=== PATIENT | female | born 1950 | race Caucasian/White ===

== ENCOUNTER → 2017-02-20 | Outpatient (CLI) | payer OTHER ==
[~2017-02-20] MED LIST: ASPI81TA28 PO; CHOL1000 PO; CHOL100010 PO; CZR50 PO; GLC/500 PO; LEVO150T9 PO; LEVO50TA6 PO; OXYC-57 PO; PRLSR20 PO; SERT50TA PO
[2017-02-20 12:57] LABS: ESTIMATED AVERAGE GLUCOSE 160 mg/dl; HA1C FLAG Normal (Normal)
[2017-02-20 13:10] LABS: ALT/SGPT 29 U/L (12-78); AST/SGOT 14 U/L (15-37); BLOOD UREA NITROGEN 18 mg/dl (7-18); BUN/CREATININE RATIO 20.9 (10-20); CALCIUM 9.1 mg/dl (8.5-10.1); CARBON DIOXIDE 30 mmol/L (21-32); CHLORIDE 104 mmol/L (98-107); CREATININE 0.85 mg/dl (0.60-1.20); GLUCOSE 134 mg/dl (70-99); POTASSIUM 4.3 mmol/L (3.5-5.1); SODIUM 140 mmol/L (136-145)
[2017-02-20 13:21] LABS: ALB/GLOB RATIO 1.2 (0.9-2); ALKALINE PHOSPHATASE 80 U/L (45-117); CHOLESTEROL 197 mg/dl (0-200); CHOLESTEROL/HDL RATIO 4.6; HDL CHOLESTEROL 43 mg/dl; LDL CHOLESTEROL CALCULATED 119 mg/dl; TRIGLYCERIDES 177 mg/dl (0-150); VERY LOW DENSITY LIPOPROT CALC 35 mg/dl
== END | disposition home or self-care (01) ==
LOC: C.LABBFT 08:15
PROVIDERS: ATTEND Internal Medicine
DX: Z00.00 Encounter for general adult medical examination without abnormal findings (principal); E11.9 Type 2 diabetes mellitus without complications; E03.9 Hypothyroidism, unspecified; R03.0 Elevated blood-pressure reading, without diagnosis of hypertension

== ENCOUNTER → 2017-03-24 | Outpatient (CLI) | payer OTHER ==
--- NOTE | 2017-03-25 07:57 | MAMMOGRAPHY REPORT ---
UNILATERAL RIGHT DIGITAL DIAGNOSTIC MAMMOGRAM TOMOSYNTHESIS WITH CAD AND TARGETED RIGHT ULTRASOUND: 03/24/2017 CLINICAL HISTORY: 66-year-old woman presents for follow-up of a mass in the 5:00 to 6:00 posterior r ight breast, thought to correlate with a cyst cluster on ultrasound. TECHNIQUE: Right breast tomosynthesis in addition to standard 2D mammography was performed. Current study was also evaluated with a Computer Aided Detection (CAD) system. COMPARISON: Comparison is made to exams dated: 09/24/2016 ultrasound, 09/24/2016 mammogram, 09/06/20 16 mammogram, 09/02/2014 mammogram, 09/01/2013 mammogram, and 08/31/2012 mammogram - [facility]. BREAST COMPOSITION: There are scattered areas of fibroglandular density in the right breast. FINDINGS: There is a stable 7.6 mm circumscribed round mass in the upper outer anterior right breas t, that is unchanged in size dating back to at least 08/18/2007, therefore likely benign. There are scattered benign-appearing calcifications in the right breast. There is a focal asymmetry measurin g 17 x 10 x 4 mm in the 6:00 posterior right breast, that is minimally increased in size compared to the 09/06/2016 screening mammogram at which time it measured 15 x 7 x 4 mm. No other new mass, arc hitectural distortion or suspicious microcalcifications are seen in the right breast. Targeted ultrasound was performed in the 6:00 right breast. In the 6:00 axis, 3 cm from the nipple, a predominantly anechoic multi loculated cystic appearing mass probably representing a cyst cluster is again identified. It measures approximately 11.5 x 5.2 x 8.0 mm. This is slightly increased co mpared to the prior ultrasound at which time it measured 6.5 x 10.0 x 5.1 mm. Given the interval ch anabell, although it most likely represents a benign cyst cluster, definitive characterization with ult rasound guided cyst aspiration is recommended. IMPRESSION: ACR BI-RADS CATEGORY 4A: LOW SUSPICION FOR MALIGNANCY, TARGETED ULTRASOUND ACR BI-RADS CATEGORY 4A: LOW SUSPICION FOR MALIGNANCY 1. Ultrasound guided cyst aspiration is recommended for a predominantly cystic appearing multilocul ated 12 mass in the 6:00 right breast, thought to correlate with an increasingly prominent focal lary mographic asymmetry. These results and recommendations were discussed with the patient at the time of the exam. She tent atively scheduled the cyst aspiration prior to leaving our department. Approximately 10% of breast cancers are not detected with mammography. A negative mammographic repor t should not delay biopsy if a clinically suggestive mass is present. Suri Jones M.D. ay/:03/24/2017 13:13:04 Lower School Music Teacher: Sara KAMARA(Frantz)(Sriram), [facility] letter sent: Abnormal 4/5 BI-RADS Code: ACR BI-RADS Category 4A: Low Suspicion For Malignancy Ultrasound BI-RADS: ACR BI-RADS Category 4A: Low Suspicion For Malignancy
== END | disposition home or self-care (01) ==
LOC: C.MAMM 09:46
PROVIDERS: ATTEND Internal Medicine
DX: Z09 Encounter for follow-up examination after completed treatment for conditions other than malignant neoplasm (principal); R92.8 Other abnormal and inconclusive findings on diagnostic imaging of breast

== ENCOUNTER → 2017-04-01 | Outpatient (CLI) | payer OTHER ==
--- NOTE | 2017-04-01 14:57 | MAMMOGRAPHY REPORT ---
UNILATERAL RIGHT DIGITAL DIAGNOSTIC MAMMOGRAM TOMOSYNTHESIS: 04/01/2017 CLINICAL HISTORY: Status post ultrasound-guided cyst aspiration in the 6:00 right breast. Please refer to the report from right breast ultrasound guided cyst aspiration performed at the same time for full detail. IMPRESSION: Please refer to the report from right breast ultrasound guided cyst aspiration performed at the same time for full detail. Approximately 10% of breast cancers are not detected with mammography. A negative mammographic repor t should not delay biopsy if a clinically suggestive mass is present. Suri Jones M.D. ay/:04/01/2017 12:07:58 Meteorological Engineer: Desiree KAMARA(R)(M), [facility] BI-RADS Code: n/a
--- NOTE | 2017-04-01 14:57 | MAMMOGRAPHY REPORT ---
ASPIRATION RIGHT BREAST: 04/01/2017 CLINICAL HISTORY: Multiloculated cystic appearing mass in the 6:00 right breast thought to correlate with a focal mammographic asymmetry. Patient presents for ultrasound guided cyst aspiration. COMPARISON: Comparison is made to exams dated: 03/24/2017 ultrasound, 03/24/2017 mammogram, 6 ultrasound, 09/24/2016 mammogram, 09/06/2016 mammogram, and 09/04/2015 mammogram - [facility]. PATIENT CONSENT: Both the procedures of ultrasound guided cyst aspiration an ultrasound guided core needle biopsy were explained to the patient. After explaining the risks, benefits and alternatives of the procedures to the patient, informed consent was obtained verbally and in writing. Specific ri sks include: bleeding, infection, puncture of adjacent structure, nontarget biopsy, sampling error a nd medication reaction. PROCEDURE DESCRIPTION: A time out was performed and the right breast was agreed as the site for atte mpted cyst aspiration versus core biopsy. The multiloculated predominantly anechoic cystic appearin g mass in the 6:00 right breast was identified. 1% buffered lidocaine was administered subcutaneousl y and intraparenchymally as local anesthesia. A 22 gauge needle was advanced to the site of the cyst ic mass. Aspiration was preformed and all of the small cystic locules resolved, confirming benign s imple cysts. The fluid was pinkish/straw-colored and clear, therefore discarded. No solid componen t was present after aspiration to warrant core needle biopsy. Real-time sonography through the area after the needle was withdrawn demonstrated no residual cystic mass. Postprocedure right CC and MLO 2-D digital and tomosynthesis images were obtained. There is a persi stent 15 mm focal asymmetry in the 6:00 posterior right breast, at the site of the cyst aspiration. On the corresponding tomosynthesis images, there are no longer borders and the asymmetry is no long er masslike. The asymmetry most likely represents residual lidocaine or partial reaccumulation. Ne vertheless, a short interval follow-up diagnostic right mammogram and possible repeat ultrasound is recommended to ensure stability in 6 months. IMPRESSION: ASPIRATION Status post aspiration to resolution of a multiloculated cyst in the 6:00 right breast. The mammogr aphic asymmetry persists and could represent residual lidocaine and/or partial reaccumulation. Ther efore, a follow-up diagnostic right mammogram and possible repeat ultrasound is recommended to ensur e stability in 6 months. Annual left mammography will be due at that time. These results and recommendations were discussed with the patient at the time of the exam. Suri Jones M.D. ay/:04/01/2017 12:23:33 Industrial Commercial Groundskeeper: Desiree CHACON)(Sriram), [facility]
== END | disposition home or self-care (01) ==
LOC: C.MAMM 10:37
PROVIDERS: ATTEND Internal Medicine
DX: N64.89 Other specified disorders of breast (principal)

== ENCOUNTER → 2017-05-28 | Outpatient (CLI) | payer OTHER ==
[~2017-05-28] MED LIST changes: -ASPI81TA28 PO; -CHOL1000 PO; -CZR50 PO; -LEVO150T9 PO; -OXYC-57 PO
[2017-05-28 12:39] LABS: ESTIMATED AVERAGE GLUCOSE 160 mg/dl; HA1C FLAG Normal (Normal)
== END | disposition home or self-care (01) ==
LOC: C.LABBFT 09:15
PROVIDERS: ATTEND Internal Medicine
DX: Z00.00 Encounter for general adult medical examination without abnormal findings (principal); E11.9 Type 2 diabetes mellitus without complications; E03.9 Hypothyroidism, unspecified

== ENCOUNTER → 2017-09-16 | Outpatient (CLI) | payer OTHER ==
--- NOTE | 2017-09-16 10:53 | Discharge Instructions ---
Discharge Instructions Procedure Procedure Date: Sep 16, 2017. Reason for visit: Right breast focal asymmetry Discharge Discharge Date: Sep 16, 2017. Discharge Diagnosis: post right breast ultrasound guided core biopsy Instructions Activity Recommendations: Additional Limitations (see below) Return to School/Work: no limitations Recommended Home Diet: No Limitations Provider Instructions: ACTIVITY RECOMMENDATIONS: * No lifting, pushing, pulling or exercising the affected side for three days. RETURN TO SCHOOL/WORK: * You may return to work/school after the procedure, but do not perform any strenuous activities for 24 to 48 hours. MEDICATIONS: * Tylenol (two 325 mg) every four to six hours if needed for mild pain (if not allergic to Tylenol). DIET: * Resume previous diet. SPECIAL CARE INSTRUCTIONS: * Keep biopsy site dry for 24 hours. May shower after 24 hours, but do not soak (bathe) incision. * May remove Tegaderm (plastic patch) tomorrow AFTER showering. * Leave the steri-strips on for one week. Allow the steri-strips to fall off by themselves. If not off after one week, you may remove them. You may place a Bandaid crosswise over the strips, if desired. * Apply ice 10 minutes on and 10 minutes off as needed. * Wear a bra at bedtime to sleep more comfortably for 2-3 days. * Your referring physician should have the results after approximately 5 to 7 business days. * Call for unusual bleeding, fever, drainage, etc or if you have any questions call [phone] during normal business hours or after hours call Dr Jones, . FOLLOW UP VISIT: Follow-up with Referring Physician as scheduled. Allergies Coded Allergies: No Known Allergies (Unverified , NONE, 10/21/16) Justina Irizarry Recommendations: Call your doctor if: * Temperature above 101 degrees * Pain not relieved by pain medicine ordered * There is increased drainage or redness from any incision * You have any unanswered questions or concerns. Your Doctors Instructions noted above were prepared by provider Suri Jones. Patient Signature Section: Patient Instructions Signature Page Savannah Quevedo Patient (or Guardian) Signature/Date: I have read and understand the instructions given to me by my caregivers. Caregiver/RN/Doctor Signature/Date: The above-named patient and/or guardian has received patient instructions on this date. + Original Patient Signature Page (only) stays with chart. Please make copy for patient.
--- NOTE | 2017-09-16 15:11 | MAMMOGRAPHY REPORT ---
UNILATERAL RIGHT DIGITAL DIAGNOSTIC MAMMOGRAM TOMOSYNTHESIS: 09/16/2017 CLINICAL HISTORY: Status post ultrasound-guided core biopsy of a cystic appearing mass in the 6:00 ri ght breast thought to correlate with an increasingly prominent focal mammographic asymmetry. Please refer to the report from right breast ultrasound guided core biopsy performed at the same time for full detail. IMPRESSION: POST PROCEDURE IMAGING FOR MARKER PLACEMENT Please refer to the report from right breast ultrasound guided core biopsy performed at the same time for full detail. Approximately 10% of breast cancers are not detected with mammography. A negative mammographic report should not delay biopsy if a clinically suggestive mass is present. Suri Jones M.D. ay/:09/16/2017 10:52:09 Lead Enterprise Architect: Betty Uriostegui, [facility] BI-RADS Code: Post Procedure Imaging For Marker Placement
--- NOTE | 2017-09-16 15:11 | MAMMOGRAPHY REPORT ---
ULTRASOUND GUIDED BIOPSY RIGHT BREAST: 09/16/2017 CLINICAL HISTORY: Ultrasound-guided core biopsy of a multiloculated cystic mass in the 6:00 right rafael ast thought to correlate with an increasingly prominent mammographic focal asymmetry. COMPARISON: Comparison is made to exams dated: 09/09/2017 ultrasound, 09/09/2017 mammogram, 04/01/2017 aspiration, 04/01/2017 mammogram, 03/24/2017 ultrasound, and 03/24/2017 mammogram - [facility]. PATIENT CONSENT: The procedure, risks and benefits were discussed with the patient and informed conse nt was obtained both verbally and in writing. Specific risks to this procedure include: bleeding, in fection, puncture of adjacent structure, nontarget biopsy, sampling error, pain, metal allergy and me dication reaction. PROCEDURE DESCRIPTION: A time out was performed and the right breast was agreed as the site of biopsy . The skin was prepped and draped in the usual sterile fashion. The cystic appearing multiloculated m ass in the 6:00 right breast was chosen as the target for biopsy. Subcutaneous and intraparenchymal 1 % buffered lidocaine, with and without epinephrine, was administered as local anesthesia. A skin inci brad was made. Through the incision, 3 samples were taken with a 12 gauge Celero biopsy device. A ri bbon shaped metallic marker was placed at the biopsy site. Hemostasis was achieved after manual compr ession. The patient tolerated the procedure well and there was no immediate complication. The sample s were sent to the pathology department in an appropriately labeled container. Postprocedure right CC, MLO and ML views of the right breast were obtained. There is a new ribbon-sh aped biopsy marker clip in the 6:00 middle to posterior right breast, aligning with the focal asymmet ry seen mammographically. This confirms mammographicsonographic correlation. No significant postbi opsy hematoma identified. IMPRESSION: ULTRASOUND GUIDED BIOPSY Status post ultrasound-guided core biopsy of a multiloculated cystic appearing mass thought to correl ate with a focal asymmetry in the 6:00 right breast. The biopsy marker clip aligns with the mammogra phic asymmetry in question, confirming mammographicsonographic correlation. The patient will receive notification of the biopsy results from her referring physician. Suri Jones M.D. ay/:09/16/2017 11:08:40 Information Security Director: Betty Uriostegui, [facility]
== END | disposition home or self-care (01) ==
LOC: C.MAMM 10:14
PROVIDERS: ATTEND Internal Medicine
DX: D05.11 Intraductal carcinoma in situ of right breast (principal)

== ENCOUNTER → 2017-10-03 | Outpatient (CLI) | payer OTHER ==
[~2017-10-03] MED LIST changes: +ASPI81TA28 PO; +CHOL1000 PO; +CZR50 PO; +LEVO150T9 PO; +OXYC-57 PO
[2017-10-03 10:05] LABS: BASO % 0.9 %; BASO ABS # 0.07 K/uL (0-0.2); COMPLETE YES; EOS % 2.6 %; HEMATOCRIT 41.4 % (37-47); IG% 0.4 %; LYMPH % 26.6 %; LYMPH ABS # 2.11 K/uL (1.2-3.4); MEAN CELL VOLUME 83.6 fL (80-100); MEAN CORPUSCULAR HEMOGLOBIN 27.9 pg (25-34); MEAN CORPUSCULAR HGB CONC 33.3 g/dl (32-36); MEAN PLATELET VOLUME 8.8 fL (7.4-10.4); NEUT % 64.5 %; PLATELET COUNT 293 K/uL (130-400); RED BLOOD COUNT 4.95 M/uL (4.2-5.4); WHITE BLOOD COUNT 7.94 K/uL (4.8-10.8)
[2017-10-03 10:31] LABS: ALT/SGPT 31 U/L (12-78); AST/SGOT 15 U/L (15-37); BLOOD UREA NITROGEN 17 mg/dl (7-18); BUN/CREATININE RATIO 21.1 (10-20); CALCIUM 8.9 mg/dl (8.5-10.1); CARBON DIOXIDE 28 mmol/L (21-32); CHLORIDE 104 mmol/L (98-107); CREATININE 0.81 mg/dl (0.60-1.20); GLUCOSE 135 mg/dl (70-99); POTASSIUM 4.1 mmol/L (3.5-5.1); SODIUM 136 mmol/L (136-145)
[2017-10-03 10:33] LABS: ALB/GLOB RATIO 1.1 (0.9-2); ALKALINE PHOSPHATASE 74 U/L (45-117)
== END | disposition home or self-care (01) ==
LOC: C.LAB 09:21
PROVIDERS: ATTEND Surgery
DX: D05.10 Intraductal carcinoma in situ of unspecified breast (principal)

== ENCOUNTER 2017-10-08 09:14 | Day surgery (SDC) | payer OTHER ==
[2017-10-03 15:34] VITALS: BMI 34.0
[~2017-10-08] VITALS: Ht 167.6 cm; Wt 96.8 kg
[~2017-10-08 09:14] MED LIST changes: +CEFAZOLIN 2000MG IV PUSH 10 ML IV SCH; -CHOL100010 PO; +LACTATED RINGER'S 1000ML 1,000 ML IV SCH; -LEVO50TA6 PO; -OXYC-57 PO; -PRLSR20 PO
[2017-10-08] MEDS ORDERED: ATROPINE SULFATE 0.1 MG/ML 5ML SYR IV PRN (10:00)
[2017-10-08] MEDS ORDERED: ONDANSETRON INJ 2 MG/ML 2 ML VIAL IV PRN ×2 (10:00→13:45)
[2017-10-08] MEDS ORDERED: FENTANYL CITRATE INJ 50 MCG/1 ML 2 ML VIAL IV PRN (10:00)
[2017-10-08] MEDS ORDERED: EpHEDrine SULFATE INJ 50 MG/ML AMP IV PRN (10:00)
--- NOTE | 2017-10-08 10:25 | Discharge Instructions ---
Discharge Instructions Date of Service Oct 08, 2017. Visit Reason for Visit: Right Breast Ductal Carcinoma In Situ Discharge Discharge Diagnosis / Problem: right breast lumpectomy Discharge Goals Goal(s): Decrease discomfort Activity Recommendations Activity Limitations: as noted below Lifting Limitations: no more than 10 pounds Shower/Bathe: no limitations (ok to shower) Anesthesia . Post Anesthesia Instructions: If you have had General Anesthesia or IV Sedation: * Do not drive today. * Resume driving when surgeon permits. * Do not make important decisions or sign legal documents today. * Call surgeon for: 1. Temperature elevations greater than 101 degrees F. 2. Uncontrollable pain. 3. Excessive bleeding. 4. Persistent nausea and vomiting. 5. Medication intolerance (nausea, vomiting or rash). * For nausea and vomiting use only clear liquids such as: tea, soda, bouillon until nausea subsides, then gradually increase diet as tolerated. * If you have any concerns or questions, call your surgeon's office. If physician is unavailable and it is an emergency, call 911 or go to the nearest emergency room. . Instructions / Follow-Up Instructions / Follow-Up Dr. Ryder in 1-2 weeks as planned, call [phone] for any questions Diet Recommendations Recommended Home Diet: no limitations Pending Studies Studies pending at discharge: yes List of pending studies: pathology Medical Emergencies . Who to Call and When: Medical Emergencies: If at any time you feel your situation is an emergency, please call 911 immediately. . Non-Emergent Contact Non-Emergency issues call your: Surgeon Call Non-Emergent contact if: you have a fever, temperature is above 101.5, your pain is not controlled, you have any medication questions . . "Provider Documentation" section prepared by Mario Willard. .
[2017-10-08] MEDS ORDERED: OXYC-57 PO (10:26)
[2017-10-08 11:30] VITALS: BP 179/92; PULSE 87; TEMP 37.2; O2SAT 95; Ht 167.6 cm; Wt 96.8 kg
--- NOTE | 2017-10-08 11:49 | History & Physical Bridge Note ---
H&P Re-Evaluation Bridge Note: I have examined the patient, reviewed the History & Physical and in the interval since the performance of the History & Physical I have noted the following changes of clinical significance: No changes noted
[2017-10-08] MEDS ORDERED: MIDAZOLAM HCL 1 MG/ML 2ML VIAL ONE (12:07)
[2017-10-08] MEDS ORDERED: PROPOFOL IV EMULSION 10 MG/ML 20 ML VIAL IV ONE (12:08)
[2017-10-08] MEDS ORDERED: LIDOCAINE HCL 2% 2 ML VIAL (20MG/ML) ONE (12:08)
[2017-10-08] MEDS ORDERED: ONDANSETRON INJ 2 MG/ML 2 ML VIAL ONE (12:08)
[2017-10-08] MEDS ORDERED: FENTANYL CITRATE INJ 50 MCG/1 ML 2 ML VIAL ONE (12:08)
[2017-10-08] MEDS ORDERED: DEXAMETHASONE SOD INJ 4 MG/ML VIAL ONE (12:09)
[2017-10-08] MEDS ORDERED: LIDOCAINE/EPINEPHRINE 1% 20 ML VIAL ONE (12:12)
[2017-10-08] MEDS ORDERED: BUPIVACAINE 0.5 % 5 MG/1 ML MPF 30ML VIAL ONE (12:13)
[2017-10-08] MEDS ORDERED: SODIUM CHLORIDE 0.9% PF 50 ML VIAL ONE ×2 (13:06→13:17)
[2017-10-08] MEDS ORDERED: LACTATED RINGER'S 1000ML 1,000 ML IV SCH (13:35)
--- NOTE | 2017-10-08 13:35 | [facility] Operative Report ---
Operative Report Operative Date Oct 08, 2017. Pre-Operative Diagnosis Ductal Carcinoma in situ of right Breast Post-Operative Diagnosis ductal carcinoma in situ of right breast Procedure(s) Performed Right breast wire localized lumpectomy Surgeon Britni Project Developer Surgeon(s) Jovan Willard PA-C Estimated Blood Loss 4 mL Findings Lumpectomy performed taking from nipple to chest wall. X-ray specimen revealed excision of wire, clip, and specimen. Additional inferior margin excised. Specimens A. Breast Tissue. Short suture superior; Long suture lateral; Double suture deep B. Inferior Margin. Short suture superior; Long suture lateral; Double suture deep Drains none Anesthesia GETA Complication(s) None Disposition Recovery Room / PACU Indications 66-year-old female with right breast lesion discovered on screening mammography , core needle biopsy revealed DCIS, plan for right breast wire localized lumpectomy. The risks of the procedure were discussed, all questions were answered, and the patient agreed to proceed with surgery as planned. Description of Procedure The patient had a localization wire placed in radiology prior to surgery. The films were reviewed and discussed with the radiologist for incisional planning. The patient was properly identified, consented, and taken to the operating room where she was placed in the supine position. General endotracheal anesthesia was induced. SCDs and a safety belt were placed. Preoperative antibiotics were administered. The patient's right breast was prepped and draped in the standard sterile fashion. Surgical timeout was performed and all parties were in agreement that this was the correct patient and procedure to be performed and we continued as planned. A transverse incision was made on the right breast inferior to the nipple and deepened down through the subcutaneous tissue with electrocautery. Flaps were raised in all directions. The wire was delivered into the incision. The breast mass was circumferentially dissected, excised, and passed off the table as specimen. The specimen was oriented. A mammogram was performed of the specimen in radiology and confirmed excision of the wire, clip, and previously imaged abnormality. The wound was irrigated and hemostasis was confirmed. The skin was closed with interrupted 3-0 Vicryl deep dermal sutures, followed by 4- 0 Monocryl running subcuticular suture. Dermabond was placed over the wound. The breast cavity was injected with 100 mL of injectable saline at the conclusion of the procedure. The patient was extubated in the operating room and taken to the PACU where she recovered without apparent incident. All sponge, instrument and needle counts were correct at the conclusion of the procedure. The patient tolerated the procedure well. I attest to the content of the Intraoperative Record and any orders documented therein. Any exceptions are noted below.
[2017-10-08] MEDS ORDERED: MoRPHine SULFATE 4 MG/ML 1 ML CARP\\VIAL IV PRN (13:45)
[2017-10-08] MEDS ORDERED: OXYCODONE/ACETAMINOPHEN 5-325 TAB PO PRN (13:45)
--- NOTE | 2017-10-08 14:00 | Anesthesiology Progress Note ---
Anesthesia Post Op Note Date & Time Oct 08, 2017 at 14:00 Vital Signs Pain Intensity: 0 Vital Signs Past 12 Hours Date Time Temp Pulse Resp B/P (MAP) Pulse Ox O2 Delivery O2 Flow Rate FiO2 10/08/17 13:55 83 16 173/87 99 Oxymask 10 10/08/17 13:45 83 16 177/92 98 Oxymask 10 10/08/17 13:35 36.8 84 16 188/79 95 Oxymask 10 10/08/17 11:30 37.2 87 20 179/92 (121) 95 Room Air Notes Mental Status: alert / awake / arousable, participated in evaluation Pt Amnestic to Procedure: Yes Nausea / Vomiting: adequately controlled Pain: adequately controlled Airway Patency, RR, SpO2: stable & adequate BP & HR: stable & adequate Hydration State: stable & adequate Anesthetic Complications: no major complications apparent
[2017-10-08 14:18] VITALS: BP 156/78; PULSE 77; TEMP 36.7; O2SAT 93
[2017-10-08 14:48] VITALS: BP 157/73; PULSE 75; TEMP 36.7; O2SAT 93
--- NOTE | 2017-10-08 15:15 | MAMMOGRAPHY REPORT ---
SPECIMEN RIGHT BREAST: 10/08/2017 CLINICAL HISTORY: Right breast lumpectomy specimen for biopsy proven DCIS. Please refer to the needle localization with imaging of the right breast report performed at the same time for full detail. IMPRESSION: SPECIMEN Please refer to the needle localization with imaging of the right breast report performed at the same time for full detail. Suri Jones M.D. ay/:10/08/2017 14:26:46 All Source Collection Manager: Betty KAMARA(R)(M), [facility]
--- NOTE | 2017-10-08 15:15 | MAMMOGRAPHY REPORT ---
NEEDLE LOCALIZATION RIGHT BREAST: 10/08/2017 CLINICAL HISTORY: Biopsy proven DCIS in the 6:00 right breast. Patient presents for preoperative loc alization prior to surgical excision. COMPARISON: Comparison is made to exams dated: 09/16/2017 mammogram, 09/16/2017 ultrasound biopsy, 1 11/09/2016 ultrasound, 09/09/2017 mammogram, 04/01/2017 aspiration, and 04/01/2017 mammogram - [facility]. PATIENT CONSENT: The risks of the procedure were explained to the patient and informed consent was ob tained. The patient denied eating or drinking anything this morning that would preclude anesthesia. No allergy to lidocaine. PROCEDURE DESCRIPTION: Prior mammograms, ultrasounds, ultrasound-guided core biopsy and post procedur e mammograms dated 09/16/2017 were reviewed. The ribbon-shaped biopsy marker clip and possible resid ual asymmetry in the 6:00 right breast is the intended target for preoperative localization. With th e patient standing, the right breast was placed in CC from below compression. 1% buffered Lidocaine w ithout epinephrine was administered as local anesthesia. A 5cm Ólpez II needle and wire combination was inserted into the breast. Optimal positioning was confirmed and the needle was removed leaving t he wire in place, as per surgeon's preference. The entire procedure including approach and needle le ngth were discussed with the operating surgeon prior to surgery. The patient tolerated the procedure well and there was no immediate complication. She was transferred to the operating room in satisfac tory condition. The specimen radiograph demonstrates the localizing wire and ribbon-shaped biopsy marker clip, compat ible with successful preoperative localization and subsequent surgical excision. Final pathology is pending. IMPRESSION: NEEDLE LOCALIZATION Status post successful preoperative needle/wire localization of biopsy-proven DCIS in the 6:00 right breast. Imaged specimen includes the intended abnormalities. The patient will receive notification of the pathology results from her referring physician. Suri Jones M.D. ay/:10/08/2017 14:29:11 Golf Course Designer: Betty CHACON)(M), [facility]
== END 2017-10-08 15:07 | disposition home or self-care (01) ==
LOC: C.ACU 09:14
PROVIDERS: ATTEND Surgery
DX: D05.10 Intraductal carcinoma in situ of unspecified breast (principal); Z17.0 Estrogen receptor positive status [ER+]; M19.90 Unspecified osteoarthritis, unspecified site; E11.9 Type 2 diabetes mellitus without complications; E03.9 Hypothyroidism, unspecified; K21.9 Gastro-esophageal reflux disease without esophagitis; Z79.82 Long term (current) use of aspirin; Z90.710 Acquired absence of both cervix and uterus; Z90.49 Acquired absence of other specified parts of digestive tract

== ENCOUNTER → 2017-12-04 | Outpatient (CLI) | payer OTHER ==
[~2017-12-04] MED LIST changes: +ACET1TAB84 PO; +ASPCH81X PO; -ASPI81TA28 PO; -CEFAZOLIN 2000MG IV PUSH 10 ML IV SCH; +CYCL5TAB PO; -LACTATED RINGER'S 1000ML 1,000 ML IV SCH; +OXYC-57 PO; +PRED10TA PO; +PRMVC TD
[2017-12-04 12:52] LABS: ALBUMIN 3.7 gm/dl (3.4-5.0); ALT/SGPT 23 U/L (12-78); BLOOD UREA NITROGEN 19 mg/dl (7-18); CALCIUM 9.1 mg/dl (8.5-10.1); CARBON DIOXIDE 29 mmol/L (21-32); CHOLESTEROL 194 mg/dl (0-200); CREATININE 0.91 mg/dl (0.60-1.20); GLUCOSE 213 mg/dl (70-99); POTASSIUM 3.9 mmol/L (3.5-5.1); SODIUM 135 mmol/L (136-145)
[2017-12-04 13:03] LABS: ALKALINE PHOSPHATASE 88 U/L (45-117); AST/SGOT 9 U/L (15-37); LDL CHOLESTEROL CALCULATED 115 mg/dl; TOTAL PROTEIN 7.4 gm/dl (6.4-8.2)
[2017-12-04 13:05] LABS: HEMOGLOBIN A1C 8.4 % (4.5-5.6)
== END | disposition home or self-care (01) ==
LOC: C.LABBFT 08:17
PROVIDERS: ATTEND Internal Medicine
DX: Z00.00 Encounter for general adult medical examination without abnormal findings (principal); E11.9 Type 2 diabetes mellitus without complications; E03.9 Hypothyroidism, unspecified; I10 Essential (primary) hypertension

== ENCOUNTER → 2018-01-08 | Outpatient (CLI) | payer OTHER ==
[~2018-01-08] MED LIST changes: +TAMO20TA9 PO
[2018-01-08 14:41] VITALS: BP 124/70; PULSE 85; TEMP 36.7; O2SAT 95
--- NOTE | 2018-01-08 16:14 | Radiation Oncology Follow-Up ---
Radiation Oncology Follow-Up Date of Visit Jan 08, 2018. Reason For Visit One-month follow-up and cancer survivorship care plan Radiation Completion Date finished 12-11-2017 Diagnosis (1) DCIS (ductal carcinoma in situ) of breast Status: Resolved Onset Date: 09/16/2017 Stage: 0 Permanent Comment: 09/09/2017 - Abnormal right mammogram 09/16/17 - U/S Core biopsy of R Breast - intraductal papilloma with low grade DCIS 10/08/17 - R Breast Lumpectomy (Dr. Ryder) Status post completion of radiation therapy December 11, 2017. She received 4005 cGy Last Edited By: Mariah Rodriguez on Dec 19, 2017 15:44 History of Present Illness Ms. Quevedo underwent cyst aspiration of her right breast on 04/01/2017 which was benign. The patient had a diagnostic bilateral mammogram on 09/09/2017 which revealed: "IMPRESSION: ACR BI-RADS CATEGORY 4: SUSPICIOUS, TARGETED ULTRASOUND ACR BI-RADS CATEGORY 4: SUSPICIOUS 1. Persistent focal asymmetry in the 6:00 posterior right breast after aspiration. This focal asymmetry is increasingly prominent compared to prior mammograms and remains indeterminate. Definitive characterization with ultrasound-guided core needle biopsy is recommended. 2. A 7 mm nodular asymmetry in the upper outer anterior left breast correlates with a small cyst cluster on ultrasound and the mammographic appearance is similar dating back to 2009, therefore considered benign given 7 years of stability. Overall no mammographic evidence of malignancy in the left breast, and recommend routine screening in 1 year, pending benign pathology results in the right breast." The patient underwent a ultrasound-guided core biopsy of the right breast on 09/16/2017 which revealed intraductal papilloma with low grade ductal carcinoma in situ that measured 5 mm in the greatest dimension; the tumor was estrogen receptor positive and progesterone receptor positive. The patient was seen and evaluated by Dr. Ryder who recommended a right breast lumpectomy. The patient underwent a right breast lumpectomy in 2016 which revealed atypical ductal hyperplasia with no evidence of residual DCIS or invasive carcinoma. Extended margins were obtained and were also negative for DCIS and invasive carcinoma. The patient was seen and evaluated by Dr. Sergo Ontiveros (records unavailable) who recommended adjuvant hormonal therapy utilizing tamoxifen, as per the patient. We are now seeing the patient in consultation to discuss the role of radiation therapy. She completed radiation therapy December 11, 2017. She received 4005 cGy in 15 fractions. Interim History She has been doing well over the past month. She had some areas of darker skin that are steadily improving. She noticed some mild redness centrally of the breast. She has noted no masses or tenderness and no axillary adenopathy. She started tamoxifen. She is tolerating this well. She has some mild hot flashes. She has had some fatigue since the completion of treatment. She feels she is tolerating the tamoxifen well. Allergies Coded Allergies: No Known Allergies (Unverified , NONE, 10/08/17) Home Medications Scheduled Aspirin (Aspirin Chewable), 81 MG PO DAILY Cholecalciferol (Vitamin D3), 1 TAB PO DAILY Estrogens, Conjugated (Premarin), 1 APPLN TD DIRECTED Levothyroxine Sodium (Levothyroxine Sodium), 1 TAB PO QAM Losartan Potassium (Losartan Potassium), 100 MG PO QAM Metformin Hcl (Glucophage), 500 MG PO BID Sertraline (Zoloft), 50 MG PO QAM Tamoxifen (Nolvadex), 20 MG PO DAILY Review of Systems Gastrointestinal: Symptoms: WNL Oral: Symptoms: No Problems Respiratory: Symptoms: WNL Urinary: Symptoms: Nocturia Comments: nocturia times 1 - 2 , leakage , has a pesseri Skin: Symptoms: No Problems Breast: Right Upper Arm Measurement: 30.0 Right Mid Arm Measurement: 25.4 Right Wrist Measurement: 16.9 Left Upper Arm Measurement: 31.5 Left Mid Arm Measurement: 25.5 Left Wrist Measurement: 16.6 Arm Dominence: Right Patient Cosmetic Evaluation: Good Staff Cosmetic Evalaluation: Good Physical Exam Vital Signs Date Time Temp Pulse Resp B/P (MAP) Pulse Ox O2 Delivery O2 Flow Rate FiO2 01/08/18 14:41 36.7 85 20 124/70 95 Fatigue: None General Appearance: no apparent distress Eyes: normal inspection, EOMI ENT: normal ENT inspection, hearing grossly normal Neck: no adenopathy, thyroid normal Respiratory/Chest: lungs clear, no respiratory distress, no accessory muscle use Breast: Right breast examination reveals well-healed incision. There are no masses or tenderness and no axillary adenopathy. She has some fibrous changes in the lower central portion of the breast. There is mild erythema of the anterior breast. There is slight edema. Using the [place] score cosmesis she has a good outcome. The left breast showed no masses or tenderness and no axillary adenopathy. Cardiovascular: regular rate, rhythm, no gallop, no murmur Extremities: no pedal edema Neurologic/Psychiatric: no motor/sensory deficits, alert, normal mood/affect Skin: warm/dry Pain Management Patient Reports Pain: No Side: Bilateral Patient Preferred Pain Scale: 0 - 10 Initial Pain Intensity: 0.0 Pain Management Plan She denies pain therefore requires no pain management. Laboratory Laboratory Results: not applicable Pathology Pathology Results: not applicable Imaging Imaging Studies: not applicable Assessment & Plan She was seen and examined by Dr. Arrieta. She knew follow-up with medical oncology and her primary care physician. She continues on tamoxifen. Today we completed a cancer survivorship care plan. A copy of the document was given to the patient. She was given a survivorship booklet. Mammography will be scheduled for the right breast in 2 months and bilateral mammography in 8 months. He is to be digital diagnostic mammograms. We asked her to return to our office in 6 months. She may call if she has any questions or concerns in the interim. Assessment & Plan (Attending) I agree with note created by Mariah Rodriguez PA-C. I reviewed the patient's chart and information with her. I have examined and evaluated the patient. I reviewed relevant clinical information and answered the patient's and/or family' s questions. CLOCK MECHANIC Total Time In Follow-Up I spent 20 minutes speaking to the patient and performing examination. I spent 20 minutes reviewing information, preparing the survivorship document, and completing this note. Total Time (Attending) In Follow-Up I spent 15 minutes examining and counseling the patient. CLOCK MECHANIC Copy To Elicia Chandler M.D.; Luis Alberto Ryder, ; Sergo Ontiveros D.O. Problem Qualifiers (1) DCIS (ductal carcinoma in situ) of breast: Laterality: right Qualified Codes: D05.11 - Intraductal carcinoma in situ of right breast
== END | disposition home or self-care (01) ==
LOC: C.ONC 14:17
PROVIDERS: ATTEND Physician Assistant Medical
DX: Z08 Encounter for follow-up examination after completed treatment for malignant neoplasm (principal); Z92.3 Personal history of irradiation; Z86.000 Personal history of in-situ neoplasm of breast

== ENCOUNTER → 2018-01-16 | Outpatient (CLI) | payer OTHER ==
[~2018-01-16] MED LIST changes: -ACET1TAB84 PO; -CYCL5TAB PO; -OXYC-57 PO; -PRED10TA PO
[2018-01-16 16:41] LABS: BASO % 1.4 %; BASO ABS # 0.08 K/uL (0-0.2); EOS ABS # 0.17 K/uL (0-0.5); HEMATOCRIT 37.6 % (37-47); HEMOGLOBIN 12.9 g/dL (12.0-16.0); IG# 0.03 K/uL (0.00-0.02); LYMPH % 23.3 %; LYMPH ABS # 1.33 K/uL (1.2-3.4); MEAN CELL VOLUME 81.7 fL (80-100); MEAN CORPUSCULAR HGB CONC 34.3 g/dl (32-36); MEAN PLATELET VOLUME 8.8 fL (7.4-10.4); MONO % 5.3 %; NEUT % 66.5 %; PLATELET COUNT 233 K/uL (130-400); RED CELL DISTRIBUTION WIDTH CV 13.1 % (11.5-14.5); RED CELL DISTRIBUTION WIDTH SD 39.2 fL (36.4-46.3); WHITE BLOOD COUNT 5.71 K/uL (4.8-10.8)
[2018-01-16 17:34] LABS: ALBUMIN 3.3 gm/dl (3.4-5.0); ALKALINE PHOSPHATASE 76 U/L (45-117); ALT/SGPT 29 U/L (12-78); AST/SGOT 15 U/L (15-37); BLOOD UREA NITROGEN 13 mg/dl (7-18); CALCIUM 8.8 mg/dl (8.5-10.1); CARBON DIOXIDE 26 mmol/L (21-32); CREATININE 0.95 mg/dl (0.60-1.20); GLUCOSE 387 mg/dl (70-99); POTASSIUM 4.1 mmol/L (3.5-5.1); SODIUM 136 mmol/L (136-145); TOTAL PROTEIN 6.5 gm/dl (6.4-8.2)
== END | disposition home or self-care (01) ==
LOC: C.LABBFT 13:35
PROVIDERS: ATTEND Internal Medicine Hematology & Oncology
DX: D05.11 Intraductal carcinoma in situ of right breast (principal)

== ENCOUNTER → 2018-05-21 | Outpatient (CLI) | payer OTHER ==
[2018-05-21 12:46] LABS: BASO % 0.7 %; BASO ABS # 0.04 K/uL (0-0.2); EOS % 2.6 %; EOS ABS # 0.14 K/uL (0-0.5); HEMATOCRIT 38.4 % (37-47); IG# 0.01 K/uL (0.00-0.02); LYMPH % 24.5 %; LYMPH ABS # 1.34 K/uL (1.2-3.4); MEAN CELL VOLUME 82.9 fL (80-100); MEAN CORPUSCULAR HEMOGLOBIN 28.1 pg (25-34); MEAN CORPUSCULAR HGB CONC 33.9 g/dl (32-36); MEAN PLATELET VOLUME 8.7 fL (7.4-10.4); MONO % 4.4 %; MONO ABS # 0.24 K/uL (0.11-0.59); NEUT % 67.6 %; NEUT ABS # 3.71 K/uL (1.4-6.5); PLATELET COUNT 222 K/uL (130-400); RED CELL DISTRIBUTION WIDTH CV 13.8 % (11.5-14.5); RED CELL DISTRIBUTION WIDTH SD 41.8 fL (36.4-46.3); WHITE BLOOD COUNT 5.48 K/uL (4.8-10.8)
[2018-05-21 13:06] LABS: HEMOGLOBIN A1C 8.5 % (4.5-5.6)
[2018-05-21 13:41] LABS: ALBUMIN 3.6 gm/dl (3.4-5.0); ALKALINE PHOSPHATASE 50 U/L (45-117); ALT/SGPT 22 U/L (12-78); AST/SGOT 15 U/L (15-37); BLOOD UREA NITROGEN 14 mg/dl (7-18); CALCIUM 8.7 mg/dl (8.5-10.1); CARBON DIOXIDE 26 mmol/L (21-32); CREATININE 0.76 mg/dl (0.60-1.20); GLUCOSE 135 mg/dl (70-99); POTASSIUM 3.8 mmol/L (3.5-5.1); SODIUM 137 mmol/L (136-145); TOTAL PROTEIN 6.6 gm/dl (6.4-8.2)
== END | disposition home or self-care (01) ==
LOC: C.LABBFT 08:57
PROVIDERS: ATTEND Internal Medicine Hematology & Oncology
DX: Z00.00 Encounter for general adult medical examination without abnormal findings (principal); E11.9 Type 2 diabetes mellitus without complications; E03.9 Hypothyroidism, unspecified; I10 Essential (primary) hypertension; D05.11 Intraductal carcinoma in situ of right breast

== ENCOUNTER 2018-06-15 19:11 | Emergency (ER) | payer OTHER ==
[~2018-06-15] VITALS: Ht 165.1 cm; Wt 93.1 kg
[2018-06-15 19:19] VITALS: TEMP 36.3; Ht 165.1 cm; Wt 93.1 kg
--- NOTE | 2018-06-15 19:59 | DIAGNOSTIC IMAGING REPORT ---
LEFT FOOT 3 VIEWS HISTORY: 2nd Toe pain post fall COMPARISON: None. FINDINGS: Soft tissue swelling within the second toe. Questionable lucency at the head of the proximal phalanx of the second toe. This is likely due to overlapping soft tissue rather than a nondisplaced fracture. No definite fracture or dislocation within the left foot. 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 The Lisfranc joint is intact. Soft tissues are unremarkable. No radiopaque foreign bodies. IMPRESSION: Questionable lucency at the head of the proximal phalanx of the second toe. This is likely due to overlapping soft tissue rather than a nondisplaced fracture. However, given the soft tissues swelling at this location considered two week radiograph follow-up to exclude a fracture. Otherwise, no definite fracture or dislocation within the left foot Electronically signed by: Desmond Bailey M.D. 06/15/2018 7:58 PM Dictated Date/Time: 06/15/2018 7:54 PM
--- NOTE | 2018-06-15 21:08 | EMERGENCY ROOM VISIT NOTE ---
History First contact with patient: 20:59 Chief Complaint: FALL Stated Complaint: FALL;PAIN IN LEFT FOOT History of Present Illness The patient is a 67 year old female who presents to the Emergency Room via private vehicle with complaints of "fall, pain in left foot". The patient states that earlier today around 1:30 PM, she was at home, when she tripped on the carpet and notes that she had essentially no pain present throughout the day she began having pain in the left foot, second toe. She notes that moving the toe causes pain. She rates the overall pain as a 8/10. She declines pain medication at this time. She notes it is more of an achy sensation. She notes no numbness or tingling. No other tenderness or pain identified in the left foot, or ankle region. Review of Systems A complete 6-point Review of Systems was discussed with the patient, with pertinent positives and negatives listed in the History of Present Illness. All remaining Review of Systems questions can be considered negative unless otherwise specified. Past Medical/Surgical History Medical Problems: (1) DCIS (ductal carcinoma in situ) of breast Surgical Problems: (1) H/O total hysterectomy Family History Patient reports no known family medical history. Social History Smoking Status: Never Smoker Alcohol Use: none Drug Use: none Marital Status: Housing Status: lives with significant other Current/Historical Medications Scheduled Aspirin (Aspirin Chewable), 81 MG PO DAILY Cholecalciferol (Vitamin D3), 1 TAB PO DAILY Estrogens, Conjugated (Premarin), 1 APPLN TD DIRECTED Levothyroxine Sodium (Levothyroxine Sodium), 1 TAB PO QAM Losartan Potassium (Losartan Potassium), 100 MG PO QAM Metformin Hcl (Glucophage), 500 MG PO BID Sertraline (Zoloft), 50 MG PO QAM Tamoxifen (Nolvadex), 20 MG PO DAILY Physical Exam Vital Signs Date Time Temp Pulse Resp B/P (MAP) Pulse Ox O2 Delivery O2 Flow Rate FiO2 06/15/18 21:20 81 16 184/82 95 06/15/18 19:19 36.3 86 18 175/76 97 Room Air Physical Exam VITAL SIGNS - Vital signs and nursing notes were reviewed. Stable. Afebrile. GENERAL -67-year-old female appearing her stated age who is in no acute distress. Communicates well with provider and answers questions appropriately. SKIN - Without rashes. The left second toe on the foot is to give it some edema , but the skin is intact. Minimal erythema. No bony deformity appreciated to inspection. EXTREMITIES - No clubbing or peripheral cyanosis. No pretibial edema present. No tenderness overlying the patient's left knee, left cross, left ankle or left foot. The only area of tenderness that it was identified to palpation was the left second toe. +5/5 strength noted in UE/LE bilaterally.She was neurovascularly intact in that region. No deformity. Minimal range of motion secondary to pain. Medical Decision & Procedures ER Provider Diagnostic Interpretation: LEFT FOOT 3 VIEWS HISTORY: 2nd Toe pain post fall COMPARISON: None. FINDINGS: Soft tissue swelling within the second toe. Questionable lucency at the head of the proximal phalanx of the second toe. This is likely due to overlapping soft tissue rather than a nondisplaced fracture. No definite fracture or dislocation within the left foot. 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 The Lisfranc joint is intact. Soft tissues are unremarkable. No radiopaque foreign bodies. IMPRESSION: Questionable lucency at the head of the proximal phalanx of the second toe. This is likely due to overlapping soft tissue rather than a nondisplaced fracture. However, given the soft tissues swelling at this location considered two week radiograph follow-up to exclude a fracture. Otherwise, no definite fracture or dislocation within the left foot Electronically signed by: Desmond Bailey M.D. 06/15/2018 7:58 PM Dictated Date/Time: 06/15/2018 7:54 PM Medical Decision Patient was seen and evaluated as above in room D2. Review was performed of nursing notes and vital signs. After obtaining a thorough history and physical examination the above work up was performed. She presents to us today with left second toe pain. She is nontoxic on examination. Her tenderness was identified in that of the left second toe. The x-ray result is as above. I agree with radiologist that although this is likely artifactual, because the patient does have point tenderness at this site I will treat this as if this could be a fracture. Al taping the region will be performed as well as postop shoe. She is to bear weight on the posterior portion of the foot. She is to follow with the family doctor/orthopedics in 7-10 days if the pain persists. She is to return here with worsening symptoms. She was neurovascularly intact in that digit. The patient was educated upon management , educated upon todays findings/results, educated upon symptoms in which to return, had questions answered prior to discharge, and was discharged home in good condition. I attest that I have personally reviewed the patient medication list. I attest that I have reviewed the patient's blood pressure and it was found to be elevated likely secondary to situation. In the evaluation and treatment of this patient the following differential diagnoses were entertained: Fracture, dislocation, subluxation, contusion, among others. Impression Primary Impression: Fall Additional Impression: Toe pain, left Departure Information Dispostion Home / Self-Care Condition GOOD Referrals Elicia Chandler M.D. (PCP) Mode Varghese D.O. Patient Instructions My [facility] Additional Instructions You have been treated in the Emergency Department for a pain and injury to your left second toe.\\ At this time the x-rays not 100% definitive on a fracture but I would treat this as if you did break the toe. I recommend the shoe and the al tape until pain-free. Keeping weight off the toe is also recommended. If this is a recent injury (<24 hrs), ice can be applied to the area of pain for the first 3 days to help decrease pain and inflammation. You have been provided the number for an Orthopaedic Surgeon. You should call this number as soon as possible to establish a follow-up visit from today's Emergency Department visit. You may also have a repeat x-ray with your family doctor. This ideally would be in 7-14 days for recheck for potential fracture. Return to the Emergency Department if your current symptoms worsen despite treatment course outlined above, or if you develop any of the following symptoms : intractable pain despite aforementioned treatment course or new onset of numbness or tingling of the foot. Problem Qualifiers
[2018-06-15 21:20] VITALS: BP 184/82; PULSE 81; O2SAT 95
== END 2018-06-15 21:21 | disposition home or self-care (01) ==
LOC: C.EDB 19:13 → C.EDD 21:21
DX: M79.675 Pain in left toe(s) (principal); W01.0XXA Fall on same level from slipping, tripping and stumbling without subsequent striking against object, initial encounter; Z79.82 Long term (current) use of aspirin; Z79.84 Long term (current) use of oral hypoglycemic drugs; Z79.890 Hormone replacement therapy; Z79.899 Other long term (current) drug therapy